=== PATIENT | female | born 1960 | race Caucasian/White ===

== ENCOUNTER 2024-12-24 10:08 | Outpatient (CLI) | payer OTHER ==
--- NOTE | 2024-12-24 13:37 | RADIOLOGY REPORT ---
CLINICAL INFORMATION: Low-back pain. Sciatica. TECHNIQUE: Multisequence multiplanar MRI images of the lumbar spine were obtained without contrast. COMPARISON: None INTERPRETATION: There is signal loss due to body habitus. Vertebral body alignment is within normal limits. Vertebral body heights are maintained. Posterior elements are intact. Heterogeneous marrow signal, likely due to red marrow hyperplasia and interspersed areas of focal fatty marrow. No focal suspicious marrow signal abnormality. Visualized spinal cord and cauda equina are within normal limits. The conus medullaris is appropriate in signal at the L2-L3 level. Moderate fatty atrophy of the paraspinal musculature in the lower lumbosacral spine. There are parapelvic cysts incidentally noted in the left kidney. L1-L2: Disc desiccation with mild disc space narrowing. No significant spinal canal stenosis. Facet hypertrophy with mild bilateral neural foraminal stenoses. L2-L3: Disc desiccation with mild disc space narrowing. No significant spinal canal stenosis. Facet hypertrophy with moderate left neural foraminal stenosis. L3-L4: Disc desiccation with moderate disc space narrowing and mild diffuse disc bulge. No significant spinal canal stenosis. Mild partial effacement of the lateral recesses. Facet hypertrophy with moderate bilateral neural foraminal stenoses, right greater than left. L4-L5: Disc desiccation with mild disc space narrowing and mild diffuse disc bulge. No significant spinal canal stenosis. Mild partial effacement of the lateral recesses. Facet hypertrophy with moderate bilateral neural foraminal stenoses, left greater than right. L5-S1: Disc desiccation with moderate disc space narrowing and diffuse disc bulge mildly indenting the ventral aspect of the thecal sac. There is superimposed left lateral disc protrusion. Facet hypertrophy and encroachment of the left neural foramen by the disc bulge contributes to severe left neural foraminal stenosis. Mild right neural foraminal stenosis secondary to facet hypertrophy. IMPRESSION: 1. Low-lying conus medullaris at L2-L3. 2. Degenerative disc disease and facet disease with associated neural foraminal and subarticular stenoses as described above. The neural foraminal stenosis appears to be greatest at the left L5-S1 level, where there is severe left neural foraminal stenosis. 3. Additional findings as detailed above.
== END 2024-12-24 23:59 | disposition home or self-care (01) ==
LOC: MRI02 10:08
PROVIDERS: ATTEND Family Medicine Sports Medicine
DX: M51.17 Intervertebral disc disorders with radiculopathy, lumbosacral region (principal); M54.50 Low back pain, unspecified; M25.551 Pain in right hip; M53.86 Other specified dorsopathies, lumbar region; M48.07 Spinal stenosis, lumbosacral region; M47.27 Other spondylosis with radiculopathy, lumbosacral region
CPT/HCPCS: 72148